=== PATIENT | male | born 1980 | race Caucasian/White ===

== ENCOUNTER 2016-08-12 08:29 | Emergency (ER) | payer BC ==
[2016-08-12] MEDS ORDERED: NS 0.9% 1000 ML* 1,000 ML IV ONE (09:54)
[2016-08-12] MEDS ORDERED: Metoclopramide IV* 5 MG/ML 2 ML VIAL IV SLOW PU ONE (09:55)
[2016-08-12] MEDS ORDERED: diPHENhydraMINE IV* 50 MG/ML 1 ml VIAL (BENADRYL) IV ONE (09:56)
[2016-08-12] MEDS ORDERED: LORazepam INJ* 2 MG/ML 1 ML VIAL IV PUSH ONE (09:56)
[2016-08-12 12:38] VITALS: BP 102/56
--- NOTE | 2016-08-12 17:37 | ED ---
camilo Becker Timothy, scribed for Zackary Pantoja MD on 08/12/16 at 0947 . Neurological HPI - HPI Summary HPI Summary: Ta Onofre is a 35 yo male presenting to [facility] with positional vertigo for the past month, and has been seeing a DrCarmen for this. Pt has had antivert and valium work in the past. Today Pt presents with bad vertigo with dizziness while walking and 3/10 MEJIA since 08/11/16, accompanied by some nausea without vomiting. He states looking up and down triggered his Sx, but more recently any kind of movement can set it off. He denies any auditory changes, or any recent illness or head trauma. He denies any dental infections, slurred speech, sinus pain, or weakness. Pt has scheduled an appointment with [facility] for 09/05/16. His MHx includes positional vertigo. He is not on any medications. - History of Current Complaint Chief Complaint: EDDizziness Stated Complaint: POSS VERITGO Time Seen by Provider: 08/12/16 09:49 Hx Obtained From: Patient Onset/Duration: Sudden Onset, Started hours ago Timing: Constant Onset Severity: Moderate Current Severity: Moderate Pain Intensity: 3 Pain Scale Used: 0-10 Numeric Character: Other: - vertigo Aggravating: Position Change/Supine to Erect, Change in Head Position Alleviating: Rest - Allergy/Home Medications Allergies/Adverse Reactions: Allergies Allergy/AdvReac Type Severity Reaction Status Date / Time No Known Allergies Allergy Verified 05/21/12 20:32 PMH/Surg Hx/FS Hx/Imm Hx Infectious Disease History: No Infectious Disease History: Denies: Traveled Outside the [place] in Last 30 Days - Family History Known Family History: Negative: Cardiac Disease, Hypertension, Diabetes, Other - seizure disorder - Social History Alcohol Use: Rare Substance Use Type: Reports: None Hx Tobacco Use: No Smoking Status (MU): Never Smoked Tobacco Review of Systems Constitutional: Negative Eyes: Negative ENT: Negative Cardiovascular: Negative Respiratory: Negative Positive: Nausea Genitourinary: Negative Musculoskeletal: Negative Skin: Negative Neurological: Other - vertigo Psychological: Normal All Other Systems Reviewed And Are Negative: Yes Physical Exam - Summary Physical Exam Summary: The patient is well-nourished in no acute distress and in no acute pain. The skin is warm and dry and skin color reflects adequate perfusion. HEENT: The head is normocephalic and atraumatic. The pupils are equal and reactive. The conjunctivae are clear and without drainage. Nares are patent and without drainage. Mouth reveals moist mucous membranes and the throat is without erythema and exudate. The external ears are intact. The ear canals are patent and without drainage. The tympanic membranes are intact. Right ear effusion. No postnasal drip. Neck is supple with full range of motion and non-tender. There are no carotid bruits. There is no neck vein distension. Respiratory: Chest is non-tender. Lungs are clear to auscultation and breath sounds are symmetrical and equal. Cardiovascular: Hear is regular rate and rhythm. There is no murmur or rub auscultated. There is no peripheral edema and pulses are symmetrical and equal. Abdomen: The abdomen is soft and non-tender. There are normal bowel sounds heard in all four quadrants and there is no organomegaly palpated. Musculoskeletal: There is no back pain noted. Extremities are non-tender with full range of motion. There is good capillary refill. There is no peripheral edema or calf tenderness elicited. Neurological: Patient is alert and oriented to person, place and time. The patient has symmetrical motor strength in all four extremities. Cranial nerves are grossly intact. Deep tendon reflexes are symmetrical and equal in all four extremities. Horizontal eye stagnis. No focal weakness. Psychiatric: The patient has an appropriate affect and does not exhibit any anxiety or depression. Triage Information Reviewed: Yes Vital Signs On Initial Exam: Initial Vitals Temp Pulse Resp BP 97.6 F 67 20 139/92 08/12/16 08:36 08/12/16 08:36 08/12/16 08:36 08/12/16 08:36 Vital Signs Reviewed: Yes - Liane Coma Scale Coma Scale Total: 15 Diagnostics - Vital Signs Vital Signs Temp Pulse Resp BP Pulse Ox 08/12/16 08:54 74 136/90 08/12/16 08:42 97.7 F 72 20 139/92 100 08/12/16 08:36 97.6 F 67 20 139/92 - Laboratory Lab Statement: Any lab studies that have been ordered have been reviewed, and results considered in the medical decision making process. Re-Evaluation - Re-Evaluation First Eval Re-Evaluation Time: 12:17 Change: Improved Comment: Pt states that the medications have helped his dizziness. Course/Dx - Course Assessment/Plan: aT Onofre is a 35 yo male presenting to [facility] with vertigo since yesterday, intermittently for the past month. His medication list was reviewed this visit. In the ED he received ativan, reglan, benadryl, and IV fluids. After clinical examination and review of his lab studies he will be discharged home with positional vertigo and labrynthitis with appropriate instructions. - Differential Dx Differential Diagnoses Neuro: Positive: Labyrinthitis, Other - positional vertigo, labrynthitis - Diagnoses Provider Diagnoses: Positional vertigo, Labyrinthitis Discharge - Discharge Plan Condition: Stable Disposition: HOME Prescriptions: LORazepam TAB(*) [Ativan 1 MG TAB (*)] 1 mg PO TID PRN #15 tab MDD 3 PRN Reason: vertigo Metoclopramide TAB* [Reglan TAB*] 10 mg PO Q6H PRN #30 tab PRN Reason: nausea diPHENhydraMINE PO* [Benadryl PO 50 MG CAP*] 50 mg PO Q6H PRN #30 cap PRN Reason: vertigo Patient Education Materials: Vertigo (ED) Forms: *Gen. Provider Communication, *Work Release Referrals: Blayne Acuña MD [Primary Care Provider] - 2 Days [facility] [Provider Group] - 2 Days Additional Instructions: Please follow up with [facility] and your primary care physician regarding your visit to the emergency department today. Return to the emergency department with any new or recurring symptoms. The documentation as recorded by the camilo orlando Timothy accurately reflects the service I personally performed and the decisions made by , Zackary Pantoja MD.
== END 2016-08-12 12:37 | disposition home or self-care (01) ==
LOC: ED 08:29
DX: R42 Dizziness and giddiness (principal); H83.09 Labyrinthitis, unspecified ear
CPT/HCPCS: 96360; 96374; 99283; J1200; J2060

== ENCOUNTER 2016-08-19 19:50 | Emergency (ER) | payer BC ==
[2016-08-19 20:45] VITALS: BP 143/97
--- NOTE | 2016-08-19 20:47 | UC ---
Edilia Becker Alok, scribed for Roly Barbour MD on 08/19/16 at 2042 . Palpitation/Dysrhythmia HP - HPI Summary HPI Summary: 35M presents to the [facility] for palpitations described as a fluttering and SOB starting at noon today and worsening since. Pt also notes heaviness of the upper extremities. Pt notes dizziness and lightheadedness different from vertigo he has had before. Pt denies room-spinning sensation. Pt denies CP or heaviness. Pt denies calf pain/swelling. Pt states that one week ago he was discharged from [facility] with a dx of vertigo and prescribed Ativan, Benadryl, and metoclopramide, though has only been taking the Ativan. Pt denies PSHx. Pt denies tobacco use, ETOH, or regular medications. - History of Current Complaint Chief Complaint: UCAllergicReaction Stated Complaint: SOB,PALPITATIONS Time Seen by Provider: 08/19/16 20:27 Hx Obtained From: Patient Onset/Duration: Lasting Hours, Still Present Timing: Constant Severity Initially: Moderate Severity Currently: Moderate Pain Intensity: 3 Pain Scale Used: 0-10 Numeric Character: Fluttering Associated Signs & Symptoms: Positive: Lightheadedness, Dizzy, Shortness of Breath. Negative: Chest Pain - Allergy/Home Medications Allergies/Adverse Reactions: Allergies Allergy/AdvReac Type Severity Reaction Status Date / Time No Known Allergies Allergy Verified 08/19/16 20:04 PMH/Surg Hx/FS Hx/Imm Hx Previously Healthy: Yes Endocrine History Of: Denies: Diabetes Cardiovascular History Of: Denies: Hypertension - Surgical History Surgical History: None - Family History Known Family History: Negative: Cardiac Disease, Hypertension, Diabetes, Other - seizure disorder - Social History Occupation: Employed Full-time Lives: With Family Alcohol Use: Rare Substance Use Type: None Smoking Status (MU): Never Smoked Tobacco Review of Systems Constitutional: Negative Respiratory: Shortness Of Breath Cardiovascular: Palpitations Musculoskeletal: Other: - upper extremity "heaviness" Neurological: Other - dizziness, lightheadedness All Other Systems Reviewed And Are Negative: Yes Physical Exam Triage Information Reviewed: Yes Appearance: Well-Appearing, No Pain Distress, Well-Nourished Vital Signs: Initial Vital Signs Temp 98.2 F 08/19/16 20:00 Pulse 80 08/19/16 20:00 Resp 18 08/19/16 20:00 BP 142/99 08/19/16 20:00 Pulse Ox 99 08/19/16 20:00 Eyes: Positive: Conjunctiva Clear ENT: Positive: Normal ENT inspection Respiratory: Positive: Chest non-tender, Lungs clear, Normal breath sounds Cardiovascular: Positive: RRR, No Murmur Abdomen Description: Positive: Nontender Musculoskeletal: Positive: Strength Intact, ROM Intact, No Edema Neurological: Positive: Alert, Other: - Non focal, alert and oriented times three. CN 2-12 grossly intact, strength 5/5/ sensory grossly intact. Psychological: Positive: Normal Response To Family, Age Appropriate Behavior Diagnostics - EKG Cardiac Rate: NL - 70 bpm Cardiac Rhythm: Sinus: Normal - TIME: 20:09. No STEMI Palpitations Course/Dx - Course Course Of Treatment: 35 yr old male with dizziness and palpitations, and sob, and he refuses transfer to the ER for work up of these symptoms. He signed out AMA. - Differential Dx/Diagnosis Provider Diagnoses: palpitations. dizziness. shortness of breath. high blood pressure. Discharge - Discharge Plan Condition: Good Disposition: AGAINST MEDICAL ADVICE The documentation as recorded by the Edilia orlando Alok accurately reflects the service I personally performed and the decisions made by , Roly Barbour MD.
== END 2016-08-19 20:35 | disposition left against medical advice (07) ==
LOC: UCEAST 19:50
DX: R00.2 Palpitations (principal); R06.02 Shortness of breath; R42 Dizziness and giddiness; R03.0 Elevated blood-pressure reading, without diagnosis of hypertension
CPT/HCPCS: 93005; 99212; G0463